=== PATIENT | female | born 1990 | race Two or more races ===

== ENCOUNTER 2022-02-12 16:02 | Emergency (ER) | payer BC ==
[~2022-02-12] VITALS: Ht 167.6 cm; Wt 120.0 kg
[2022-02-12 16:23] VITALS: BP 115/79
[2022-02-12] MEDS ORDERED: SODIUM CHLORIDE 0.9% 1,000 ML IV ONE (16:30)
[2022-02-12] MEDS ORDERED: MIDAZOLAM HCL 2 MG/2 ML VIAL IV ONE (16:30)
[2022-02-12 16:57] LABS: BASOPHILS % 0.6 % (0.0-2.0); EOSINOPHILS % 1.4 % (0.0-5.0); HEMATOCRIT. 38.9 % (36.0-48.0); HEMOGLOBIN. 12.3 g/dL (12.0-16.0); LYMPHOCYTES % 29.7 % (20.0-50.0); MEAN CORPUSCULAR HEMOGLOBIN 23.4 pg (28.0-32.0); MEAN CORPUSCULAR VOLUME 73.9 fL (81.0-99.0); MEAN PLATELET VOLUME 11.6 fl (7.4-10.4); MONOCYTES % 6.4 % (2.0-8.0); NEUTROPHILS % 61.9 % (40.0-76.0); PLATELET 210 x1000/uL (130-400); RED BLOOD CELL COUNT 5.27 mill/uL (4.2-5.4); RED CELL DISTRIBUTION WIDTH 14.7 % (11.6-14.6)
[2022-02-12 16:59] LABS: CHLORIDE 104 mEq/L (98-107)
[2022-02-12 17:07] LABS: ETHANOL BLOOD < 10 mg/dL
[2022-02-12 17:15] LABS: HCG SCREEN NEGATIVE
[2022-02-12 17:59] LABS: *AMPHETAMINES SCREEN URINE NEGATIVE (NEGATIVE); *BARBITURATES SCREEN URINE NEGATIVE (NEGATIVE); *BENZODIAZEPINES SCREEN URINE NEGATIVE (NEGATIVE); *COCAINE SCREEN URINE NEGATIVE (NEGATIVE); CANNABINOID URINE SCREEN NEGATIVE (NEGATIVE); METHADONE URINE SCREEN NEGATIVE (NEGATIVE); OPIATES URINE SCREEN NEGATIVE (NEGATIVE); PHENCYCLIDINE URINE SCREEN NEGATIVE (NEGATIVE)
== END 2022-02-12 18:50 | disposition home or self-care (01) ==
LOC: ER 16:02 → EDSEX 16:02 → ER 18:50
DX: T50.905A Adverse effect of unspecified drugs, medicaments and biological substances, initial encounter (principal); I49.9 Cardiac arrhythmia, unspecified; Y92.9 Unspecified place or not applicable
CPT/HCPCS: 36415; 80053; 80305; 80320; 81025; 84703; 85025; 93005; 96360; 99284; J7030; G0480

== ENCOUNTER → 2023-02-06 | Outpatient (CLI) | payer BC ==
[2023-02-06 12:25] LABS: BASOPHILS % 0.8 % (0.0-2.0); DIFFERENTIAL COMMENT 0; EOSINOPHILS % 1.9 % (0.0-5.0); HEMATOCRIT. 37.7 % (36.0-48.0); HEMOGLOBIN. 12.1 g/dL (12.0-16.0); LYMPHOCYTES % 34.5 % (20.0-50.0); MEAN CORPUSCULAR VOLUME 75.1 fL (81.0-99.0); MEAN PLATELET VOLUME 9.9 fl (7.4-10.4); MONOCYTES % 6.8 % (2.0-8.0); PLATELET 213 x1000/uL (130-400); RED BLOOD CELL COUNT 5.02 mill/uL (4.2-5.4); RED CELL DISTRIBUTION WIDTH 15.1 % (11.6-14.6)
[2023-02-06 12:26] LABS: CLARITY URINE CLEAR (CLEAR); COLOR URINE YELLOW (YELLOW); GLUCOSE URINE NEGATIVE (NEGATIVE); KETONES URINE NEGATIVE (NEGATIVE); LEUKOCYTE ESTERASE URINE NEGATIVE (NEGATIVE); NITRITE URINE NEGATIVE (NEGATIVE); OCCULT BLOOD URINE 1+ (NEGATIVE); PROTEIN URINE NEGATIVE (NEGATIVE); SPECIFIC GRAVITY URINE 1.009 (1.005-1.030); UROBILINOGEN URINE 0.2 E.U./dL (0.2-1.0)
[2023-02-06 13:03] LABS: SQUAMOUS EPITHELIAL CELL URINE RARE /lpf (RARE/1+)
[2023-02-06 13:04] LABS: BACTERIA URINE NONE SEEN; RBC URINE 0-2 /hpf (0-2); WBC URINE 0-2 /hpf (0-2); YEAST URINE NONE SEEN
[2023-02-06 14:19] LABS: CHLORIDE 105 mEq/L (98-107); INDEX HEMOLYSI 1 (1-3); INDEX ICTERIC 1 (1-4); INDEX LIPEMIC 1 (1-3); POTASSIUM 3.9 mEq/L (3.5-5.1); SODIUM 139 mEq/L (136-145)
[2023-02-06 14:41] LABS: ALBUMIN 3.6 g/dL (3.4-5.0); ASPARTATE AMINOTRANSFERASE 17 IU/L (15-37); BILIRUBIN TOTAL 0.2 mg/dL (0.1-1.0); CARBON DIOXIDE 28 mEq/L (21-32); CHOLESTEROL 157 mg/dL (<200); CREATININE 0.8 mg/dL (0.6-1.3); GLUCOSE 82 mg/dL (70-105); HDL CHOLESTEROL 68 mg/dL (40-59); LDL CHOLESTEROL 87 mg/dL (5-100); PROTEIN TOTAL 7.6 g/dL (6.0-8.3); T4 FREE 0.98 ng/dL (0.76-1.46); TRIGLYCERIDE 184 mg/dL (0-150); UREA NITROGEN BLOOD 11 mg/dL (7-21)
[2023-02-06 16:25] LABS: ALANINE AMINOTRANSFERASE 23 IU/L (13-61); CALCIUM 8.9 mg/dL (8.5-10.1)
[2023-02-07 06:08] LABS: THYROID PEROXIDASE ANTIBODY < 9 IU/mL (0-34); VITAMIN D 25-OH 18.6 ng/mL (30.0-100.0)
== END | disposition home or self-care (01) ==
LOC: LAB 11:56
PROVIDERS: ATTEND Family Medicine
DX: Z00.00 Encounter for general adult medical examination without abnormal findings (principal)
CPT/HCPCS: 36415; 80053; 80061; 81003; 82306; 83036; 84439; 84481; 85025; 86376

== ENCOUNTER → 2024-07-05 | Outpatient (CLI) | payer BC | END | disposition home or self-care (01) | LOC: RAD 13:35 | PROVIDERS: ATTEND Internal Medicine | DX: R76.11 Nonspecific reaction to tuberculin skin test without active tuberculosis (principal) | CPT/HCPCS: 71045 ==

== ENCOUNTER → 2024-10-19 | Outpatient (CLI) | payer BC ==
[2024-10-19 13:12] LABS: BASOPHILS % 0.6 % (0.0-2.0); DIFFERENTIAL COMMENT 0; EOSINOPHILS % 1.8 % (0.0-5.0); HEMATOCRIT. 39.1 % (36.0-48.0); HEMOGLOBIN. 12.1 g/dL (12.0-16.0); LYMPHOCYTES % 32.9 % (20.0-50.0); MEAN CORPUSCULAR HEMOGLOBIN 22.3 pg (28.0-32.0); MEAN PLATELET VOLUME 10.5 fl (7.4-10.4); MONOCYTES % 5.4 % (2.0-8.0); NEUTROPHILS % 59.3 % (40.0-76.0); PLATELET 217 x1000/uL (130-400); RED BLOOD CELL COUNT 5.43 mill/uL (4.2-5.4); RED CELL DISTRIBUTION WIDTH 15.4 % (11.6-14.6); WHITE BLOOD COUNT 8.6 x1000/uL (4.5-11.0)
[2024-10-19 13:50] LABS: CARBON DIOXIDE 27 mEq/L (21-32); CHLORIDE 107 mEq/L (98-107); POTASSIUM 3.9 mEq/L (3.5-5.1); SODIUM 139 mEq/L (136-145)
[2024-10-19 13:51] LABS: CALCIUM 9.8 mg/dL (8.7-10.4)
[2024-10-19 13:56] LABS: CREATININE 0.8 mg/dL (0.6-1.0); GLUCOSE 97 mg/dL (70-105); TRIGLYCERIDE 104 mg/dL (0-150); UREA NITROGEN BLOOD 10 mg/dL (9-23)
[2024-10-19 13:57] LABS: ALANINE AMINOTRANSFERASE 13 IU/L (10-49); ALBUMIN 4.3 g/dL (3.2-4.8); ASPARTATE AMINOTRANSFERASE 16 IU/L (<34); LDL CHOLESTEROL 91 mg/dL (5-100)
[2024-10-19 13:58] LABS: BILIRUBIN TOTAL 0.4 mg/dL (0.1-1.0); CHOLESTEROL 154 mg/dL (<200); HDL CHOLESTEROL 43 mg/dL (>65); PROTEIN TOTAL 7.5 g/dL (6.0-8.3)
[2024-10-19 13:59] LABS: THYROID STIMULATING HORMONE 1.63 uIU/mL (0.55-4.78); VITAMIN B12 SERUM 518 pg/mL (211-911)
== END | disposition home or self-care (01) ==
LOC: LAB 12:33
PROVIDERS: ATTEND Internal Medicine
DX: I10 Essential (primary) hypertension (principal); E11.9 Type 2 diabetes mellitus without complications; E03.9 Hypothyroidism, unspecified; E78.5 Hyperlipidemia, unspecified; E53.9 Vitamin B deficiency, unspecified
CPT/HCPCS: 36415; 80053; 80061; 82607; 83036; 84436; 84443; 85025